=== PATIENT | male | born 1990 | race African-American/Black ===

== ENCOUNTER 2016-07-06 17:52 | Emergency (ER) | payer OTHER ==
[~2016-07-06] VITALS: Ht 190.5 cm; Wt 70.2 kg
[~2016-07-06 17:52] MED LIST: MOTRIN800 MG PO; ZOFRAN ODT4 MG PO; no home meds
[2016-07-06 19:09] LABS: EOSINOPHIL (%) 1.3 % (0-5); EOSINOPHIL COUNT 0.1 K/uL (0-0.3); HEMATOCRIT 44.7 % (38.0-50.0); IMMATURE GRANULOCYTE (%) 0.7 % (0.0-0.7); IMMATURE GRANULOCYTE COUNT 0.1 K/uL; INSTRUMENT ABS NEUTROPHIL CT 5.7 K/uL; MCH 30.4 PG (29.0-34.0); MCHC 33.3 G/DL (30.0-36.0); MCV 91.2 FL (86-99); MEAN PLAT.VOLUME 9.1 uM^3 (9.0-12.4); MONOCYTE (%) 8.5 % (3-12); MONOCYTE COUNT 0.7 K/uL (0-0.8); NEUTROPHIL (%) 65.7 % (45-76); NEUTROPHIL COUNT 5.7 K/uL (1.8-6.4); PLATELET COUNT 262 K/uL (156-360); RBC DIS.WIDTH-CV 12.7 % (11.8-14.6); RBC DIS.WIDTH-SD 42.1 % (39-53); WHITE BLOOD COUNT 8.6 K/uL (4.1-10.2)
[2016-07-06 19:17] LABS: CHLORIDE 101 mEq/L (99-109); POTASSIUM 4.8 mEq/L (3.7-5.4); SODIUM 138 mEq/L (136-147)
[2016-07-06 19:19] LABS: GLUCOSE 104 mg/dL (70-99)
[2016-07-06 19:21] LABS: ANION GAP 9 MEQ/L (2-14)
[2016-07-06 19:23] LABS: GFR ESTIMATE (CALCULATED) > 59 mL/min/
[2016-07-06 19:24] LABS: UREA NITROGEN (BUN) 10 mg/dL (9-23)
[2016-07-06 19:32] LABS: AMPHETAMINE NEGATIVE (500 ng/mL); BARBITURATES NEGATIVE (200 ng/mL); BENZODIAZEPINES PRESUMPTIVE POSITIVE (150 ng/mL); COCAINE NEGATIVE (150 ng/mL); INTERNAL CONTROLS VALID? YES; METHADONE NEGATIVE (200 ng/mL); METHAMPHETAMINE NEGATIVE (500 ng/mL); OPIATES (MORPHINE) NEGATIVE (100 ng/mL); OXYCODONE NEGATIVE (100 ng/mL); PHENCYCLIDINE NEGATIVE (25 ng/mL); PROPOXYPHENE NEGATIVE (300 ng/mL); THC CANNABINOIDS NEGATIVE (50 ng/mL); TRICYCLIC ANTIDEPRESSANTS NEGATIVE (300 ng/mL)
[2016-07-06 19:37] LABS: ADD MEDTOX COMMENT Y
[2016-07-06 20:09] LABS: BENZODIAZEPINES QUANT VALUE 0 NG/ML
[2016-07-06 20:10] LABS: BENZODIAZEPINES, URINE SCREEN Negative (200 ng/mL)
[2016-07-06 21:18] LABS: TROP-I INTERPRETATION NEGATIVE; TROPONIN-I < 0.01 ng/mL (0.0-0.30)
[2016-07-07 01:08] VITALS: BP 128/79
== END 2016-07-07 01:31 ==
LOC: EME 17:52
PROVIDERS: Emergency Medicine
DX: R00.2 Palpitations (principal); R00.0 Tachycardia, unspecified; F17.200 Nicotine dependence, unspecified, uncomplicated
CPT/HCPCS: 71020; 80048; 83735; 84443; 84484; 84999; 85025; 93005; 99281; 99285; J2060; J7030

== ENCOUNTER 2016-07-10 21:00 | Emergency (ER) | payer OTHER ==
[~2016-07-10] VITALS: Ht 190.5 cm; Wt 65.0 kg
[2016-07-10 21:26] LABS: HEMATOCRIT 45.5 % (38.0-50.0); MCH 30.1 PG (29.0-34.0); MCHC 32.5 G/DL (30.0-36.0); MCV 92.7 FL (86-99); MEAN PLAT.VOLUME 9.7 uM^3 (9.0-12.4); PLATELET COUNT 252 K/uL (156-360); RBC DIS.WIDTH-CV 12.5 % (11.8-14.6); RBC DIS.WIDTH-SD 42.7 % (39-53); RED BLOOD COUNT 4.91 M/uL (4.00-5.50); WHITE BLOOD COUNT 6.7 K/uL (4.1-10.2)
[2016-07-10 21:36] LABS: CHLORIDE 102 mEq/L (99-109); SODIUM 139 mEq/L (136-147)
[2016-07-10 21:38] LABS: GLUCOSE 242 mg/dL (70-99)
[2016-07-10 21:39] LABS: ANION GAP 15 MEQ/L (2-14)
[2016-07-10 21:41] LABS: GFR ESTIMATE (CALCULATED) > 59 mL/min/; POTASSIUM 3.5 mEq/L (3.7-5.4)
[2016-07-10 21:43] LABS: UREA NITROGEN (BUN) 8 mg/dL (9-23)
[2016-07-10 21:45] LABS: CREATINE KINASE 164 IU/L (1-294); SALICYLATE < 5.0 MG/DL (15-30); TOTAL CK 164 IU/L (1-294)
[2016-07-10 21:47] LABS: TROP-I INTERPRETATION NEGATIVE; TROPONIN-I < 0.01 ng/mL (0.0-0.30)
[2016-07-11 01:12] VITALS: BP 161/106
== END 2016-07-11 01:14 ==
LOC: EME → EDBD 21:00 → EME 07-11 01:14
PROVIDERS: Emergency Medicine
DX: T50.901A Poisoning by unspecified drugs, medicaments and biological substances, accidental (unintentional), initial encounter (principal); F17.200 Nicotine dependence, unspecified, uncomplicated
CPT/HCPCS: 71010; 80048; 82550; 82553; 84484; 85027; 93005; 99281; 99285; G0480; J2310; J7030

== ENCOUNTER 2016-07-11 07:40 | Emergency (ER) | payer OTHER ==
[~2016-07-11] VITALS: Ht 190.5 cm; Wt 69.2 kg
[2016-07-11 08:55] LABS: ADD MIUA? NO; BILIRUBIN SMALL; BLOOD NEGATIVE; COLOR YELLOW ((YELLOW)); GLUCOSE (STRIP) 50; KETONES NEGATIVE; LEUKOCYTES NEGATIVE; NITRITE NEGATIVE; PROTEIN (STRIP) 30; SPECIFIC GRAVITY 1.017 (1.000-1.030); UROBILINOGEN 0.2 MG/DL (0.2-1.0)
[2016-07-11 09:08] LABS: AMPHETAMINE NEGATIVE (500 ng/mL); BARBITURATES NEGATIVE (200 ng/mL); BENZODIAZEPINES NEGATIVE (150 ng/mL); COCAINE NEGATIVE (150 ng/mL); INTERNAL CONTROLS VALID? YES; METHADONE NEGATIVE (200 ng/mL); METHAMPHETAMINE NEGATIVE (500 ng/mL); OPIATES (MORPHINE) PRESUMPTIVE POSITIVE (100 ng/mL); OXYCODONE NEGATIVE (100 ng/mL); PHENCYCLIDINE NEGATIVE (25 ng/mL); PROPOXYPHENE NEGATIVE (300 ng/mL); THC CANNABINOIDS PRESUMPTIVE POSITIVE (50 ng/mL); TRICYCLIC ANTIDEPRESSANTS NEGATIVE (300 ng/mL)
[2016-07-11 09:09] LABS: ADD MEDTOX COMMENT Y
[2016-07-11 09:15] LABS: EOSINOPHIL (%) 0.3 % (0-5); HEMATOCRIT 45.3 % (38.0-50.0); IMMATURE GRANULOCYTE (%) 0.3 % (0.0-0.7); IMMATURE GRANULOCYTE COUNT 0.1 K/uL; INSTRUMENT ABS NEUTROPHIL CT 12.4 K/uL; MCH 30.9 PG (29.0-34.0); MCHC 32.5 G/DL (30.0-36.0); MCV 95.2 FL (86-99); MEAN PLAT.VOLUME 9.3 uM^3 (9.0-12.4); MONOCYTE (%) 8.9 % (3-12); MONOCYTE COUNT 1.4 K/uL (0-0.8); NEUTROPHIL (%) 77.7 % (45-76); NEUTROPHIL COUNT 12.4 K/uL (1.8-6.4); PLATELET COUNT 260 K/uL (156-360); RBC DIS.WIDTH-CV 12.8 % (11.8-14.6); RED BLOOD COUNT 4.76 M/uL (4.00-5.50)
[2016-07-11 09:16] LABS: WHITE BLOOD COUNT 15.9 K/uL (4.1-10.2)
[2016-07-11 09:23] LABS: CHLORIDE 106 mEq/L (99-109); POTASSIUM 4.2 mEq/L (3.7-5.4); SODIUM 141 mEq/L (136-147)
[2016-07-11 09:26] LABS: GLUCOSE 91 mg/dL (70-99)
[2016-07-11 09:27] LABS: ANION GAP 8 MEQ/L (2-14)
[2016-07-11 09:28] LABS: TOTAL BILIRUBIN 0.3 mg/dL (0.0-1.0)
[2016-07-11 09:29] LABS: ALKALINE PHOSPHATASE 54 IU/L (3-129); SERUM ETHYL ALCOHOL < 10 mg/dL
[2016-07-11 09:30] LABS: GFR ESTIMATE (CALCULATED) > 59 mL/min/
[2016-07-11 09:31] LABS: DIRECT BILIRUBIN 0.2 mg/dL (0.0-0.3); UREA NITROGEN (BUN) 4 mg/dL (9-23)
[2016-07-11 12:24] VITALS: BP 148/81
== END 2016-07-11 12:32 ==
LOC: EME 07:40
PROVIDERS: Emergency Medicine
DX: F19.10 Other psychoactive substance abuse, uncomplicated (principal); J45.909 Unspecified asthma, uncomplicated; F17.200 Nicotine dependence, unspecified, uncomplicated
CPT/HCPCS: 80048; 80076; 81003; 84999; 85025; 93005; 99281; 99284; G0480; J2310

== ENCOUNTER 2016-12-06 19:48 | Emergency (ER) | payer SELFPAY ==
[~2016-12-06] VITALS: Ht 190.5 cm; Wt 63.8 kg
[2016-12-06 20:44] LABS: EOSINOPHIL (%) 2.5 % (0-5); EOSINOPHIL COUNT 0.2 K/uL (0-0.3); HEMATOCRIT 39.4 % (38.0-50.0); IMMATURE GRANULOCYTE (%) 0.3 % (0.0-0.7); INSTRUMENT ABS NEUTROPHIL CT 6.8 K/uL; LYMPHOCYTE COUNT 1.5 K/uL (1.0-2.8); MCH 30.3 PG (29.0-34.0); MCHC 33.2 G/DL (30.0-36.0); MCV 91.2 FL (86-99); MEAN PLAT.VOLUME 9.5 uM^3 (9.0-12.4); MONOCYTE (%) 6.6 % (3-12); MONOCYTE COUNT 0.6 K/uL (0-0.8); NEUTROPHIL (%) 74.4 % (45-76); NEUTROPHIL COUNT 6.8 K/uL (1.8-6.4); PLATELET COUNT 235 K/uL (156-360); RBC DIS.WIDTH-SD 40.2 % (39-53); RED BLOOD COUNT 4.32 M/uL (4.00-5.50); WHITE BLOOD COUNT 9.1 K/uL (4.1-10.2)
[2016-12-06 20:53] LABS: CHLORIDE 105 mEq/L (99-109); POTASSIUM 3.5 mEq/L (3.7-5.4); SODIUM 139 mEq/L (136-147)
[2016-12-06 20:55] LABS: GLUCOSE 120 mg/dL (70-99)
[2016-12-06 20:56] LABS: ANION GAP 5 MEQ/L (2-14)
[2016-12-06 20:58] LABS: SERUM ETHYL ALCOHOL < 10 mg/dL
[2016-12-06 20:59] LABS: GFR ESTIMATE (CALCULATED) > 59 mL/min/
[2016-12-06 21:00] LABS: UREA NITROGEN (BUN) 6 mg/dL (9-23)
[2016-12-07 02:38] VITALS: BP 107/67
== END 2016-12-07 02:42 | disposition home or self-care (01) ==
LOC: EME 19:48
PROVIDERS: Emergency Medicine
DX: F19.10 Other psychoactive substance abuse, uncomplicated (principal); S00.93XA Contusion of unspecified part of head, initial encounter; W18.30XA Fall on same level, unspecified, initial encounter; J45.909 Unspecified asthma, uncomplicated; F17.200 Nicotine dependence, unspecified, uncomplicated
CPT/HCPCS: 70450; 80048; 81003; 85025; 99281; 99285; G0480

== ENCOUNTER 2016-12-16 10:04 | Emergency (ER) | payer SELFPAY ==
[~2016-12-16] VITALS: Ht 190.5 cm; Wt 67.2 kg
[2016-12-16 11:08] LABS: EOSINOPHIL (%) 0.6 % (0-5); EOSINOPHIL COUNT 0.1 K/uL (0-0.3); HEMATOCRIT 44.4 % (38.0-50.0); IMMATURE GRANULOCYTE (%) 0.4 % (0.0-0.7); INSTRUMENT ABS NEUTROPHIL CT 6.9 K/uL; LYMPHOCYTE COUNT 1.5 K/uL (1.0-2.8); MCH 29.9 PG (29.0-34.0); MCHC 32.9 G/DL (30.0-36.0); MCV 90.8 FL (86-99); MEAN PLAT.VOLUME 9.4 uM^3 (9.0-12.4); MONOCYTE (%) 8.7 % (3-12); MONOCYTE COUNT 0.8 K/uL (0-0.8); NEUTROPHIL (%) 73.9 % (45-76); NEUTROPHIL COUNT 6.9 K/uL (1.8-6.4); PLATELET COUNT 238 K/uL (156-360); RBC DIS.WIDTH-CV 12.1 % (11.8-14.6); RBC DIS.WIDTH-SD 40.2 % (39-53); RED BLOOD COUNT 4.89 M/uL (4.00-5.50); WHITE BLOOD COUNT 9.3 K/uL (4.1-10.2)
[2016-12-16 11:13] LABS: CHLORIDE 101 mEq/L (99-109); POTASSIUM 4.2 mEq/L (3.7-5.4); SODIUM 141 mEq/L (136-147)
[2016-12-16 11:15] LABS: GLUCOSE 108 mg/dL (70-99)
[2016-12-16 11:17] LABS: ANION GAP 8 MEQ/L (2-14)
[2016-12-16 11:18] LABS: SERUM ETHYL ALCOHOL < 10 mg/dL
[2016-12-16 11:19] LABS: GFR ESTIMATE (CALCULATED) > 59 mL/min/
[2016-12-16 11:20] LABS: UREA NITROGEN (BUN) 5 mg/dL (9-23)
[2016-12-16 14:28] VITALS: BP 126/84
== END 2016-12-16 14:39 | disposition home or self-care (01) ==
LOC: EME 10:04
PROVIDERS: Emergency Medicine
DX: F19.10 Other psychoactive substance abuse, uncomplicated (principal); F19.259 Other psychoactive substance dependence with psychoactive substance-induced psychotic disorder, unspecified; F20.9 Schizophrenia, unspecified; J45.909 Unspecified asthma, uncomplicated; F17.200 Nicotine dependence, unspecified, uncomplicated
CPT/HCPCS: 80048; 81003; 85025; 90837; 99281; 99285; G0480